=== PATIENT | female | born 1955 | race Caucasian/White ===

== ENCOUNTER 2023-11-08 23:59 | Inpatient (IN) | payer MEDICARE, OTHER, SELFPAY ==
[2023-11-08 21:08] VITALS: BP 131/72
[2023-11-08 21:11] VITALS: BP 131/72
[2023-11-08 21:24] LABS: % Basophils 0.4 % (0-2); % Eosinophils 3.5 % (0-6); % Immature Granulocytes 0.6 % (0-0.5); % Lymphocytes 26.1 % (20.5-51.1); % Monocytes 6.6 % (1.7-9.3); % Neutrophils 62.8 % (42.2-75.2); Absolute Basophils 0.1 10^3/uL (0-0.2); Absolute Eosinophils 0.5 10^3/uL (0-0.7); Absolute Immature Granulocytes 0.1 10^3/uL (0-0.05); Absolute Lymphocytes 3.3 10^3/uL (1.2-3.4); Absolute Monocytes 0.8 10^3/uL (0.1-0.6); Hematocrit 33.6 % (37.0-47.0); Hemoglobin 11.2 g/dL (12.0-16.0); Mean Corp Hgb Conc. 33.3 g/dL (33.0-37.0); Mean Corpuscular Hgb 27.9 pg (27.0-31.0); Mean Corpuscular Volume 83.8 fL (81.0-99.0); Mean Platelet Volume 9.7 fL (7.4-10.4); Nucleated Red Blood Cells % 0 %; Platelet Count 299 10^3/uL (130-400); Red Blood Cell Count 4.01 10^6/uL (4.20-5.40); Red Cell Dist. Width 14.7 % (11.5-14.5); White Blood Cell Count 12.8 10^3/uL (4.8-10.8)
[2023-11-08 21:37] LABS: ALT (SGPT) 22 U/L (0-35); AST (SGOT) 31 U/L (14-36); Albumin 4.2 g/dl (3.5-5.0); Alkaline Phosphatase 59 U/L (38-126); Blood Urea Nitrogen 24 mg/dl (7-17); Calcium 9.9 mg/dl (8.4-10.2); Carbon Dioxide 27 mmol/L (22-30); Chloride 106 mmol/L (98-107); Glucose 122 mg/dl (70-99); Potassium 4.2 mmol/L (3.5-5.1); Sodium 142 mmol/L (135-145); Total Bilirubin 0.3 mg/dl (0.2-1.3); Total Protein 7.5 g/dl (6.3-8.2); eGFR > 60.00
[2023-11-08 22:03] VITALS: BP 139/79
--- NOTE | 2023-11-08 22:05 | ED.MUSCINJ ---
HPI-Injury
General
Chief Complaint: Musculo-Skeletal Complaint
Source: patient
Exam Limitations: none
Time Seen by Provider: 11/08/23 21:45
Nursing documentation reviewed up to this point in time: agreed with
Travel History
Have you had any contact with someone who has COVID-19?: No
Do you have any symptoms of coronavirus? Fever > 100 degrees, chills, cough, shortness of breath, sore throat, loss of taste or smell, muscle aches, or headache?: No
History of Present Illness-Injury
Is this injury a work related problem?: No
Is pt an associate of [facility]?: No
Initial Injury comments:
Missed a step at a restaurant and fell. SHe denies hitting her head. No LOC. COmplains of pain to right left hip. Injury occurred just [employer]. Brought to ED via EMS for eval.
Past History
Past History
ED Past Medical History: HTN, NIDDM, Hypothyroidism and Other (No cancer history)
ED Past Surgical History: Gynecological and Other (thyroidectomy)
Social History
Tobacco: Non-smoker
Alcohol: None
Drug: None
Review of Systems
Review of Systems
Allergies reviewed?: Yes
All Other Systems: ROS reviewed and negative except as documented in HPI and ROS
Constitutional: Reports no symptoms
EENT: Reports no symptoms
Respiratory: Reports no symptoms
Cardiac: Reports no symptoms
ABD/GI: Reports no symptoms
Musculoskeletal: Reports joint pain (Left hip pain)
Skin: Reports no symptoms
Neurological: Reports no symptoms
Psychiatric: Reports no symptoms
Musculoskeletal Injury Exam
Musculoskeletal Injury Exam
Left Hip:
Pain with Movement?: Moderate
Tender to palpation?: Moderate
Soft tissue swelling?: Mild
External deformity and angulation?: None
Joint effusion?: None
Contusion?: Moderate
Hematoma-local bleeding into tissue?: Moderate
Strain- Sprain- Tear (Connective tissue injury)?: Moderate
Crepitus with movement?: No
Joint instability?: No
Malalignment/deformity?: No
Range of motion: Limited
Distal skin color and temperature: normal-warm & good color
Capillary Refill: normal
Normal distal neurovascular exam?: Yes
Peripheral Pulses: posterior tibial (left): 3+ and dorsalis pedis (left): 3+
Phy Exam
General Physical Exam
General Presentation: well appearing and mild distress
General age: appears stated age
General Skin: warm and dry
General Habitus: normal
General Mental: alert
Cardiovascular Exam
Cardiovascular Exam: regular rate/rhythm
Gastrointestinal Exam
Gastrointestinal Exam: non tender, soft and no organomegaly
Musculoskeletal Exam
Musculoskeletal Exam: neuro vasc intact
Skin Exam
Skin Exam: normal color, warm/dry and no rash
Psychiatric Exam
Psychiatric Exam: normal mood/affect
Injury Course
Orders/Labs/Results
Orders:
Orders
11/08/23 21:13
CR Hip - LT w/wo Pel 2-3 Vw* Urgent
Comment:
Reason For Exam: injury
Include a pelvis x-ray?: Yes
11/08/23 21:15
Complete Blood Count/With Diff Urgent
Comprehensive Metabolic Panel Urgent
11/08/23 22:16
Lower Ext Left wo Contrast CT [CT Lower Ext W/o Iv Cont Lt] Urgent
Comment:
Reason For Exam: left hip fracture - requested by ortho
Femur, Left 2 View [CR Femur - Left Min 2 Vw] Urgent
Comment:
Reason For Exam: trauma - requested by ortho
11/08/23 22:17
HYDROmorphone [Dilaudid] 0.5 mg IV NOW STA
Ondansetron Injectable [Zofran] 4 mg IV NOW STA
11/08/23 22:59
Consult Orthopedic [ORTHOPEDIC CONSULT] Urgent
Consulting Provider: Marquis Trujillo
Was physician already notified: Yes
Abnormal Lab Results
11/08/23
21:15
WBC 12.8 H 10^3/uL
(4.8-10.8)
RBC 4.01 L 10^6/uL
(4.20-5.40)
Hgb 11.2 L g/dL
(12.0-16.0)
Hct 33.6 L %
(37.0-47.0)
RDW 14.7 H %
(11.5-14.5)
Abs Immat Gran (auto) 0.1 H 10^3/uL
(0-0.05)
Absolute Neuts (auto) 8.0 H 10^3/uL
(1.4-6.5)
Absolute Monos (auto) 0.8 H 10^3/uL
(0.1-0.6)
Immature Gran % 0.6 H %
(0-0.5)
BUN 24 H mg/dl
(7-17)
Glucose 122 H mg/dl
(70-99)
11/08/23 21:15
11/08/23 21:15
*Radiology
Radiology exam reviewed: radiology read reviewed
*Pulse Oximetry
Patient hypoxic: no
*Critical Care Note
Total Time (30-74mins, 75-104mins- exclusive of procedures): Not Applicable
Update Note
Update Note:
Dr. Trujillo consulted via tiger text. Plan for OR in AM. He is requesting full femur xray and CT of left hip. Orders placed. Patient will be admitted to hospitalist service with Dr. Trujillo consulting
ED Attending Note
-
Portions of this chart may have been created with voice recognition software.� Occasional wrong word or��sound alike� substitutions may have occurred due to the inherent limitations of voice recognition software.
Discharge Plan
Departure
Patient Disposition: Admit
Date of Disposition: 11/08/23
Time of Disposition: 22:25
Presentation/result/management discussed w/ accepting MD/DO: Hospitalist
Patient with high blood pressure during this ER visit?: No
Condition: Fair
Covid-19: Not Applicable
Discharge Problem:
Closed hip fracture
Interventions
Interventions:
*Risk Screen - Suicide Last Done: 11/08/23 21:08
*General Assessment Last Done: 11/08/23 21:08
*Neglect/Abuse Screening Last Done: 11/08/23 21:08
ED- Fall Risk Assessment Last Done: 11/08/23 21:17
*ED COVID-19 Vaccine History Last Done: 11/09/23 02:32
*Nursing Disposition Last Done: 11/09/23 01:29
ED-Musculoskeletal Assessment Last Done: 11/08/23 21:17
Discharge Date and Time
Discharge Date/Time: 11/09/23 01:30
[2023-11-08] MEDS: DILAUDID 0.5 MG IV (22:45)
[2023-11-08] MEDS: ZOFRAN 4 MG IV (22:45)
[2023-11-08 23:00] VITALS: BP 120/68
[2023-11-08 23:13] VITALS: BMI 35.2
[2023-11-09] VITALS (9 sets, daily range): BP systolic 111–164; BP diastolic 65–88; BMI 33.5
[2023-11-09] MEDS: DILAUDID 0.5 MG IV ×4 (00:11→12:49)
--- NOTE | 2023-11-09 00:14 | HPS.HSE ---
Family Physician
-
Family Physician: Makenzie Sheppard
Chief Complaint
-
L Hip pain s/p fall
History of Present Illness
Patient is a 68y F with PMH significant for hypertension, DM-II and obesity who presents to ED complaining of left hip pain after a [id number] this evening. Patient states she was walking down some stairs this evening when she lost her
footing and fell, landing on her L side. She denies striking her head or any LOC. She denies any prodrome of dizziness, lightheadedness, chest pain or dyspnea. Patient noted immediate pain in the L hip and was fairly certain that she had broken
her hip. Patient was brought to ED via EMS and x-rays here confirm L femur fracture.
Medical History
Past Medical History
Past Medical History: Reports Other
Additional Past Medical History:
DM-II
Hypertension
Obesity
Hypothyroidism
Osteoarthritis
Past Surgical History: Reports Other
Additional Past Surgical History:
Thyroidectomy
T&A
Social History
Tobacco: Former Smoker (Quit smoking 40 years ago. Approx 20 pack years total use.)
Alcohol: Occasional
Drug: None
Personal:
Living: With Family
Family History
Family History: Not pertinent
Allergies / Home Medications
Allergies reflects when Allergies were last updated in [employer].
Home Medications with original date entered in [employer]
Allergy/Medication List:
Allergies
Allergy/AdvReac Type Severity Reaction Status Date / Time
aspirin Allergy Unknown Verified 11/08/23 21:08
levofloxacin [From Levaquin] Allergy Unknown Verified 11/08/23 21:08
Home Medications
brimonidine 0.2 % eye drops 1 drp ophthalmic (eye) BID 11/08/23
ergocalciferol (vitamin D2) 1,250 mcg (50,000 unit) capsule 1,250 mcg PO QWEEK 11/08/23
evolocumab 140 mg/mL subcutaneous syringe (Repatha Syringe) 140 mg SC Q2W 11/08/23
insulin aspart U-100 100 unit/mL (3 mL) subcutaneous pen (Novolog FlexPen U-100 Insulin aspart) 5 unit SC TID 11/08/23
insulin degludec 100 unit/mL (3 mL) subcutaneous pen (Tresiba FlexTouch U-100 insulin) 60 unit SC HS 11/08/23
levothyroxine 150 mcg tablet 150 mcg PO DAILY 11/08/23
meloxicam 15 mg tablet 15 mg PO DAILY 11/08/23
metformin 1,000 mg tablet 1,000 mg PO BID 11/08/23
olmesartan 40 mg tablet 40 mg PO DAILY 11/08/23
sodium bicarbonate 325 mg tablet 325 mg PO BID 11/08/23
vit C 250 mg-vit E 90 mg-zinc 40 mg-copper 1 [id number] capsule (PreserVision AREDS-2) 1 tab PO BID 11/08/23
Review of Systems
-
History Source: Patient
A 12 point ROS was completed and negative except as noted: Yes
Constitutional: Denies Fever or Chills
Respiratory: Denies Cough or Trouble Breathing
Cardiac: Denies Chest Pain or Palpitations
Abdomen/GI: Denies Abdominal Pain, Nausea, Vomiting or Diarrhea
: Denies Dysuria, Frequency or Flank Pain
Musculoskeletal: Reports Joint Pain
Neurological: Denies Dizzy or Headache
Psych: Denies Depression or Anxiety
Physical Exam
Vital Signs
Vital Signs
Temp Pulse Resp BP Pulse Ox
99.6 F 86 14 120/68 100
11/08/23 21:08 11/08/23 23:00 11/08/23 23:00 11/08/23 23:00 11/08/23 22:30
Physical Exam
General: Other (68y F in mild distress due to pain.)
HEENT: Moist mucous membranes and PERRLA
Respiratory: Clear; No Wheezes, Rales or Rhonchi
Cardiac: S1/S2 and Regular Rhythm; No Murmur
GI: Soft, Non Tender, Non Distended and Normal Bowel Sounds
Musculoskeletal: No Clubbing, No Cyanosis and Other (LLE shortened and externally rotated. Pain with any ROM.)
Neuro: AO x 3
Psych: No Anxious or Depressed
Laboratory Results
-
11/08/23 21:15
11/08/23 21:15
Laboratory Results
Total Bilirubin 0.3 mg/dl (0.2-1.3) 11/08/23 21:15
AST 31 U/L (14-36) 11/08/23 21:15
ALT 22 U/L (0-35) 11/08/23 21:15
Alkaline Phosphatase 59 U/L (38-126) 11/08/23 21:15
Impression/Plan
-
A/P: Patient is a 68y F with PMH significant for DM-II, hypertension and obesity who presents to ED complaining of L hip pain s/p fall.
Left Hip Fracture
- Admit for further evaluation and treatment.
- Patient with significant L proximal femur fracture s/p described [id number].
- Pain control / bedrest overnight.
- Ortho evaluation for operative repair.
- Patient with no personal history of NC, CVA, etc.
- No prior complications relating to surgery / anesthesia.
- Patient is at increased risk for complications compared to an otherwise healthy individual of her age based on DM, obesity.
- Benefits of planned procedure outweigh potential risks and patient is OK to proceed to OR without additional pre-op evaluation(s).
- Post-op PT, OT, etc.
- Additional imaging of L hip requested due to atypical fracture pattern - ? pathologic component.
[id number]
- No suspicious characteristics of described fall.
- PT / OT post-op as noted above.
DM-II
- Stable. Unusual insulin regimen with patient reported basal insulin dose ranging from 0 to 60 units depending on glucose.
- Will begin with 20 units for now and monitor for hypo or hyperglycemia.
- Adjust basal dose as needed.
- SSI as needed for hyperglycemia.
- Update A1C.
Benign Hypertension
- Stable. Continue outpatient med regimen and adjust as needed for adequate BP control.
Hypothyroidism
- Stable. Continue T4 supplementation.
Obesity due to insulin resistance and excess calories
- Affects all aspects of care.
- Encourage healthy diet and increased activity as able with goal of weight reduction.
DVT Prophylaxis: Foot pumps for now. Post-op as per Ortho.
Code Status: Full
[2023-11-09 05:21] LABS: Glucose - Point of Care 173 mg/dl (70-99)
[2023-11-09 05:52] LABS: Hematocrit 32.5 % (37.0-47.0); Hemoglobin 10.3 g/dL (12.0-16.0); Mean Corp Hgb Conc. 31.7 g/dL (33.0-37.0); Mean Corpuscular Hgb 27.9 pg (27.0-31.0); Mean Corpuscular Volume 88.1 fL (81.0-99.0); Mean Platelet Volume 10.3 fL (7.4-10.4); Platelet Count 263 10^3/uL (130-400); Red Blood Cell Count 3.69 10^6/uL (4.20-5.40); Red Cell Dist. Width 14.6 % (11.5-14.5); White Blood Cell Count 14.3 10^3/uL (4.8-10.8)
[2023-11-09 06:19] LABS: Blood Urea Nitrogen 21 mg/dl (7-17); Calcium 9.6 mg/dl (8.4-10.2); Carbon Dioxide 25 mmol/L (22-30); Chloride 104 mmol/L (98-107); Estimated Creatinine Clearance 82 ml/min; Glucose 169 mg/dl (70-99); Potassium 5.2 mmol/L (3.5-5.1); Sodium 140 mmol/L (135-145); eGFR > 60.00
[2023-11-09] MEDS: NOVOLOG FLEXPEN-LOW RESISTANCE 1 UNITS SC (06:24)
[2023-11-09] MEDS: SYNTHROID PO (06:25)
[2023-11-09] MEDS: ALPHAGAN 0.2% EYE DROPS 1 DROP OPHTH ×2 (08:20→21:00)
[2023-11-09] MEDS: SODIUM BICARBONATE 325 MG PO ×2 (08:21→21:08)
[2023-11-09] MEDS: TYLENOL 1000 MG PO ×2 (08:22→22:03)
[2023-11-09] MEDS: BENICAR 40 MG PO (08:22)
[2023-11-09 08:59] LABS: Glycohemoglobin (HgbA1c) 7.3 % (4.0-5.6)
--- NOTE | 2023-11-09 10:10 | W.PN.HOSP.TC ---
Today's Communication/Plan
-
Await surgery today
Stop olmesartan
Topical steroids
Assessment / Plan
Assessment / Plan
Gen-AAOx3, NAD
HEENT-NC, AT, anicteric, clear oral mm
Neck-supple
CV-reg, no M, +S1/S2
Lungs-clear B/L
Abd-soft, NT, ND
Ext-no edema
Musculoskeletal-no cyanosis, clubbing
Skin-warm and dry, widespread psoriatic lesions
Neuro-grossly non-focal
Psych-calm, cooperative
Acute traumatic left proximal femur fracture -due to fall. N.p.o. for operative repair today. Appears medically stable for surgery.
Diffuse psoriasis -not on active treatment. Can use topical steroids. Recommend outpatient follow-up with dermatology.
Hyperkalemia -5.2. Discontinue ARB. Recheck labs in the morning.
Normocytic anemia -unclear chronicity or etiology. Needs outpatient follow-up. Monitor for now.
DM2 with hyperglycemia -hemoglobin A1c 7.3%. Glucose 169 this morning. At home she is on metformin twice daily, Tresiba scale up to 60 units at bedtime, NovoLog 5 units 3 times daily.
In the hospital she is on Lantus 20 units at bedtime, low resistance NovoLog scale.
Essential hypertension -stable.
Hyperlipidemia -on Repatha subcutaneously every 2 weeks.
Hypothyroidism -continue Synthroid.
Obesity due to excess calories
Full code
PT/OT postop
Anticipated Discharge: 24 - 48 hours
Subjective/Interval History
-
Date of Service: November 09, 2023
Patient seen and examined. No complaints.
Objective Data
-
Labs:
Laboratory Results
11/09/23
04:41
WBC 14.3 H
Hgb 10.3 L
Hct 32.5 L
Plt Count 263
Sodium 140
Potassium 5.2 H
Chloride 104
Carbon Dioxide 25
BUN 21 H
Creatinine 0.8
Glucose 169 H
Calcium 9.6
Vital Signs:
Vital Signs
Temp Pulse Resp BP Pulse Ox
98.7 F 82 17 136/88 99
11/09/23 07:05 11/09/23 07:05 11/09/23 07:05 11/09/23 07:05 11/09/23 08:00
Review of Systems
-
History Source: Patient
All other systems: Reviewed and negative
--- NOTE | 2023-11-09 10:40 | CM ---
CM met with pt bedside
Pt resides with her spouse in a 2SH with ramp entrance and elevator throughout
Pt notes independence with ADLs and denies use of DMEs
PCP- annelise Sheppard
Rx- [facility]
Pt admitted with l. hip fx and planned for surgery
Will need post-op PT/OT evals
Explained anticipated post op rehab needs
PAC list provided
Spouse is the chief of [employer] [facility] [employer] and is well versed with local rehabs
They do not want inpatient rehab on dc- want to go home
Explained VN and possible need for DME rentals on dc
CM will continue to follow for dc planning
Discharge Disposition- anticipate SNF recommendations, pt is hopeful for home with VN and DMEs
--- NOTE | 2023-11-09 10:59 | CON.ORTHO ---
Addendum entered and electronically signed by Marquis Trujillo MD 11/09/23 11:26:
I agree with the above note and evaluated the patient at bedside. 68-year-old female sustained a trip and fall landing on the left side. She had severe pain and inability to weight-bear. She was brought to the emergency department where she was
shown to have a comminuted subtrochanteric left femur fracture. She has a history of psoriasis which affects her skin including the lateral thigh on the left. She has not been treating this. She is not on Biologics. She denies numbness in the
left foot. We discussed treatment options in light of her injury and the skin changes on her lateral thigh. She has psoriatic plaques throughout the anterior lateral thigh without signs of infection. We discussed the morbidity associated with
nonoperatively treated hip fractures and discussed the risk and benefits of surgical treatment. Shared decision was to proceed with left hip fracture ORIF is of a modular nail. We discussed that she may have a slightly higher risk of infection
given the skin changes. We discussed that treating the psoriatic plaques until the resolved could take weeks and the associated morbidity with this delay may outweigh the risk of proceeding with surgery acutely. She was to proceed with surgery.
We discussed extended oral antibiotics as prophylaxis. All questions were answered.
Original Note:
Consultation
-
Date/Time Consultation Requested: 11/08/2023 @ 22:59
Date/Time Consultation Performed: 11/09/2023 @ 6:40 AM
Requesting Provider: Damari Garber NP
Performing Provider: Raz Iverson PA-C for Dr. Trujillo
Reason for Consultation: Left Hip Fracture
Consultation - Orthopedics
History
Orthopedic Surgery Note
CC: Left Hip Pain s/p Mechanical Fall
HPI: The patient is a 68-year-old female with a past medical history significant for Hypertension, Type II Diabetes on Metformin (reported last HbA1c 7.2), hypothyroidism, osteoarthritis, and obesity who presented to [facility] Emergency
Department on 11/08/2023 with complaints of left hip pain after sustaining a mechanical fall last night. Patient states that she was walking down the stairs at the [facility] when she lost her footing and fell, landing on her left hip. She
denies any head trauma or loss of consciousness. Patient noted immediate pain in the left hip and at that time was fairly certain that she fractured her left hip. She was transported to [facility] via EMS where x-rays confirmed a left
proximal femur fracture. At baseline, patient reports that she is fully ambulatory at baseline. She denies any previous orthopedic surgeries. She denies any blood thinner use. Orthopedic surgery was consulted regarding management of this patient.
PMH/PSH: DM-II, HTN, Obesity, Hypothyroidism, Osteoarthritis. Thyroidectomy, T&A.
Medications: Reviewed.
Family History: Family history was reviewed. Noncontributory
Social history: Former smoker (quit smoking 40 years ago. Approximate 20 pack years total use). Reports occasional alcohol use. Denies any illicit drug use. Patient is and lives with her family. Patient is fully ambulatory at baseline
without assistance.
Exam
General appearance: Pleasant. No acute distress.
Head: Normocephalic/atraumatic
Nose: No lesions or discharge.
Skin: No obvious rashes or open wounds
Lungs: No audible wheezing, no cough or sputum production
Musculoskeletal:
LLE:
Focused examination of the left lower extremity reveals leg is shortened and externally rotated. Skin intact without open wounds. Psoriatic changes overlying the left proximal thigh and lateral hip region. Positive logroll. Positive tenderness to
palpation over the left hip. No significant tenderness to palpation over the left knee. Range of motion of hip deferred secondary to known fracture. She is able to demonstrate active dorsiflexion and plantarflexion of the left ankle. She is able to
wiggle all toes. Sensation intact to light touch. NVI distally.
Imaging:
CR Hip - LEFT w/wo Pel 2-3 Vw*, CR Femur - LEFT Min 2 Vw*, and Lower Extremity CT scan w/o Contrast was obtained at [facility] on 11/08/2023 and was made available for my review today. I note a left comminuted and angulated subtrochanteric
proximal femur fracture. There is underlying left hip osteoarthritis noted.
Assessment and Plan: 68-year-old female with left comminuted subtrochanteric proximal femur fracture s/p mechanical fall. We discussed the treatment options. Recommend operative fixation. The risk, benefits, potential complications, and expected
postoperative course were reviewed. Patient agrees to proceed with surgical intervention. Surgical and blood consents were obtained and placed into the patient's chart. We will plan for OR today for left proximal femur ORIF with cephalomedullary
nail under the direction of Dr. Trujillo. Patient has been medically cleared to proceed to OR. She will remain NPO. She is to remain nonweightbearing to the left leg until postop. Continue with pain management as needed. Preop Ancef and irrigation
on-call to the OR. Type and screen pending. Left hip marked as the correct surgical extremity. Orthopedic surgery will continue to follow along.
Allergies / Home Medications
Allergy/AdvReac Type Severity Reaction Status Date / Time
aspirin Allergy Unknown Verified 11/08/23 21:08
levofloxacin [From Levaquin] Allergy Unknown Verified 11/08/23 21:08
�Medication �Instructions �Recorded
brimonidine 0.2 % eye drops 1 drp ophthalmic (eye) BID Eye 11/08/23
Condition
ergocalciferol (vitamin D2) 1,250 1,250 mcg PO QWEEK Supplement 11/08/23
mcg (50,000 unit) capsule
evolocumab 140 mg/mL subcutaneous 140 mg SC Q2W High Cholesterol 11/08/23
syringe (Repatha Syringe)
insulin aspart U-100 100 unit/mL 5 unit SC TID Diabetes 11/08/23
(3 mL) subcutaneous pen (Novolog
FlexPen U-100 Insulin aspart)
insulin degludec 100 unit/mL (3 60 unit SC HS Diabetes 11/08/23
mL) subcutaneous pen (Tresiba
FlexTouch U-100 insulin)
levothyroxine 150 mcg tablet 150 mcg PO DAILY Thyroid 11/08/23
meloxicam 15 mg tablet 15 mg PO DAILY Pain 11/08/23
metformin 1,000 mg tablet 1,000 mg PO BID Diabetes 11/08/23
olmesartan 40 mg tablet 40 mg PO DAILY Blood Pressure 11/08/23
sodium bicarbonate 325 mg tablet 325 mg PO BID Electrolyte Repletion 11/08/23
vit C 250 mg-vit E 90 mg-zinc 40 1 tab PO BID Supplement 11/08/23
mg-copper 1 [id number]
capsule (PreserVision AREDS-2)
Vital Signs / Lab Results
Temp Pulse Resp BP Pulse Ox
98.7 F 82 17 136/88 99
11/09/23 07:05 11/09/23 07:05 11/09/23 07:05 11/09/23 07:05 11/09/23 08:00
11/09/23 04:41
11/09/23 04:41
[2023-11-09] MEDS: DIPROSONE CREAM 0.05% TOPICAL (12:00)
[2023-11-09 12:38] LABS: Glucose - Point of Care 138 mg/dl (70-99)
[2023-11-09] MEDS: NOVOLOG FLEXPEN-LOW RESISTANCE SC ×2 (12:39→18:56)
[2023-11-09] MEDS: TYLENOL PO (17:10)
--- NOTE | 2023-11-09 17:55 | OR.RPT ---
Operative Report
Operative Report
Orthopaedic Surgery Operative Note
DATE OF OPERATION: 11/09/2023
PREOPERATIVE DIAGNOSIS: Subtrochanteric Hip Fracture, Left
POSTOPERATIVE DIAGNOSIS: Same
OPERATION PERFORMED: Left subtrochanteric hip fracture open reduction and internal fixation with cephalomedullary nail
SURGEON: Marquis Trujillo MD
DEALER RELATIONSHIP MANAGER: NA
ANESTHESIA: General
COMPLICATIONS: None.
ESTIMATED BLOOD LOSS: 250 mL.
DRAINS: None
SPECIMEN: None
IMPLANTS:
Sheila Gamma Cephalomeduallary nail; 420 mm by 10 mm
[place] lag screw, 95 mm.
5.0mm distal interlocking screw x2
INDICATIONS FOR PROCEDURE
68F with history of psoriasis presented to the ED after sustaining a fall. Xrays showed comminuted proximal femur fracture. I discussed treatment options with the patient and family including nonoperative and operative treatments. We reviewed the
natural history of the problem, as well as the risks, benefits, and alternatives of various treatment options. Shared decision was to proceed with surgical treatment. We discussed that she had psoriatic involvement of the skin over the lateral thigh
and buttock region which may compromise her wound healing and increase risk of infection. Given the morbidity of delaying surgery for treatment of this over the course of a week or two, shared decision was to proceed with surgery in light of some
elevated risk of wound complications. The patient and family understood the risks including, but were not limited to, bleeding, infection, failure to relieve pain, more pain than preop, damage to blood vessels and nerves, need for reoperation,
mechanical failure of the implants, wound healing problems, stiffness, instability, blood clot, pulmonary embolism, myocardial infarction, pneumonia, arrhythmia, CVA, and . All questions were answered, and informed consent was obtained.
PROCEDURE IN DETAIL: The patient was identified in the preoperative holding area. The operative limb was identified as the operative site and marked with my initials. The patient was transferred to the operating room. General anesthesia was
performed. [facility] IV antibiotics and tranexamic acid were given. All bony prominences were well padded. The operative limb was prepped and draped in the usual sterile fashion.
We performed a surgical time-out. A 1.6mm (0.65��) nikita wire was placed in the distal femur, and traction bow was applied. This was well padded over the knee. 15lbs of skeletal traction was applied. The guide wire was placed over the medial
aspect of the tip of the greater trochanter. The guide wire was advanced and checked for appropriate position on AP and lateral. The pin guide wire was advanced to the level of the lesser trochanter. Incision was made about the wire. Care was made
to make incision to avoid areas of most pronounced psoriatic involvement. The opening reamer was used to open the starting point over the guide wire. The fracture was reduced with the aid of flouroscopy. A small lateral incision was made, and a bone
hook and alcaraz were used to aid reduction. A ball-tipped guide wire was advanced to the distal femur. Length was measured to be 425mm. The femoral canal was sequentially reamed with the fracture reduced starting with a 9.5mm reamer up to 11.5mm. The
nail was then inserted over the guidewire down to the appropriate depth. The guide wire was removed. The targeting guide was assembled, and a lateral incision was made for lag screw placement. A guide pin was advanced into the femoral head. Position
was checked on AP and lateral. The length was measured to be 100mm. The drill was set to the appropriate depth, and the lag screw path was drilled over the guide wire. The lag screw was then inserted into the femoral head just distal to the
subchondral bone. Compression was applied. The locking screw was then placed into the top of the nail. Skeletal traction was removed, and two distal interlocking screws were placed with perfect chemehuevi technique. Final fluoroscopy shots were
performed which showed appropriate position and length of the implant and anatomic reduction of the fracture.
The incisions were copiously irrigated with 3L normal saline. The deep fascial layers were closed with 0 PDS. The dermal layer closed with 2-0 PDS running. The skin was closed with 3-0 nylon. Sterile dressings were applied. The patient was awoken
from anesthesia without complication.
The patient awoke from anesthesia without difficulty. Sponge and instrument counts were correct x2 at the end of the case. I was present and participated in the entire procedure. The patient was sent to the recovery room in stable condition.
Post operative plan:
TTWB LLE; WBAT LLE for transfers and ADL's only
PT/OT
Pain control
ABX: Ancef x24 hours and 7 days PO keflex
DVT: ASA 325 daily if tolerated; or lovenox 30mg BID subcutaneous 4 weeks
Earl Trujillo MD
[2023-11-09 17:57] LABS: Glucose - Point of Care 186 mg/dl (70-99)
--- NOTE | 2023-11-09 18:01 | SUR.PHASEI ---
Re'd agiated, pulling all equipment off, hitting, oriented x 3 by RN, reassured, combative
--- NOTE | 2023-11-09 18:05 | SUR.PHASEI ---
Sl less agitated, reassured, refusing O2 n/c clothes, psoriasis rash all over body, HOB elevated low fowlers
--- NOTE | 2023-11-09 18:20 | SUR.PHASEI ---
Periods of calm, more cooperative
[2023-11-09] MEDS: NOVOLOG vial 1 UNITS SC (18:31)
--- NOTE | 2023-11-09 18:35 | SUR.PHASEI ---
kavita Suarez, ice maint to Yesi king
[2023-11-09] MEDS: NSS 1000 IV (18:36)
--- NOTE | 2023-11-09 18:49 | PTCARENOTE ---
Pt returned to [facility] s/p L hip ORIF w/ gamma nail. Pt L hip aquacel C/D/I, and L knee dressing C/D/I, NV intact. Pt on 2L NC satting 94%, IVF infusing. Pt drowsy but arousable to verbal stimuli. Pt at bedside. Pt has no complaints at this
time.
--- NOTE | 2023-11-09 18:59 | SUR.PHASEI ---
More alert, apologizing for behavior, reassured, vss, stable for d/c
[2023-11-09] MEDS: COLACE 100 MG PO (21:07)
[2023-11-09] MEDS: DIPROSONE CREAM 0.05% 1 APPLIC TOPICAL (21:08)
[2023-11-09 22:00] LABS: Glucose - Point of Care 219 mg/dl (70-99)
[2023-11-09] MEDS: ANCEF 5 IV (22:03)
[2023-11-09] MEDS: LANTUS 0.200000000000000011 UNITS SC (22:04)
--- NOTE | 2023-11-10 01:03 | PTCARENOTE ---
Educated pt on need to try to use commode post op even if TTWB, pt ordered WBAT for transfers. Pt verbalized concern about ambulation since pain is a big issue. RN explained that pt can be medicated for pain w PRN pain medication but pt refused to
use commode and stated she rather wait for PT/OT to work with her. Pt insisted on use of bedpan for toileting despite education. Assessment ongoing.
[2023-11-10 03:12] VITALS: BP 119/58
[2023-11-10] MEDS: SYNTHROID 150 MCG PO (05:19)
[2023-11-10] MEDS: ANCEF 5 IV (05:19)
[2023-11-10] MEDS: NSS 1000 IV ×2 (06:04→17:39)
[2023-11-10 07:00] VITALS: BP 143/91
[2023-11-10 07:22] LABS: % Basophils 0.3 % (0-2); % Eosinophils 0.2 % (0-6); % Immature Granulocytes 0.5 % (0-0.5); % Lymphocytes 16.7 % (20.5-51.1); % Monocytes 8.5 % (1.7-9.3); % Neutrophils 73.8 % (42.2-75.2); Absolute Immature Granulocytes 0.1 10^3/uL (0-0.05); Absolute Lymphocytes 1.7 10^3/uL (1.2-3.4); Absolute Monocytes 0.9 10^3/uL (0.1-0.6); Absolute Neutrophils 7.7 10^3/uL (1.4-6.5); Hematocrit 27.4 % (37.0-47.0); Hemoglobin 8.6 g/dL (12.0-16.0); Mean Corp Hgb Conc. 31.4 g/dL (33.0-37.0); Mean Corpuscular Hgb 27.8 pg (27.0-31.0); Mean Corpuscular Volume 88.7 fL (81.0-99.0); Mean Platelet Volume 10.4 fL (7.4-10.4); Nucleated Red Blood Cells % 0 %; Platelet Count 227 10^3/uL (130-400); Red Blood Cell Count 3.09 10^6/uL (4.20-5.40); White Blood Cell Count 10.4 10^3/uL (4.8-10.8)
[2023-11-10 07:46] LABS: Glucose - Point of Care 162 mg/dl (70-99)
[2023-11-10 07:57] LABS: Blood Urea Nitrogen 20 mg/dl (7-17); Calcium 8.5 mg/dl (8.4-10.2); Carbon Dioxide 23 mmol/L (22-30); Chloride 103 mmol/L (98-107); Estimated Creatinine Clearance 82 ml/min; Glucose 146 mg/dl (70-99); Potassium 4.8 mmol/L (3.5-5.1); Sodium 138 mmol/L (135-145); eGFR > 60.00
[2023-11-10] MEDS: ROXICODONE 10 MG PO (08:24)
[2023-11-10] MEDS: TYLENOL 1000 MG PO ×3 (08:24→21:23)
[2023-11-10] MEDS: COLACE 100 MG PO (08:24)
[2023-11-10] MEDS: LOVENOX 30 MG SC ×2 (08:25→21:05)
[2023-11-10] MEDS: ALPHAGAN 0.2% EYE DROPS 1 DROP OPHTH ×2 (08:25→21:04)
[2023-11-10] MEDS: DIPROSONE CREAM 0.05% 1 APPLIC TOPICAL ×2 (08:26→21:15)
[2023-11-10] MEDS: NOVOLOG FLEXPEN-LOW RESISTANCE 1 UNITS SC ×2 (08:26→12:29)
[2023-11-10] MEDS: SODIUM BICARBONATE 325 MG PO ×2 (08:27→21:06)
--- NOTE | 2023-11-10 08:40 | W.PN.ORTHO ---
Today's Communication / Plan
-
68 yo F POD1 left cephalomedullary nail under the direction of Dr. Trujillo
--TDWB to LLE. May be WBAT for transfers and ADLs. We appreciate the assistance of PT/OT.
--Recommend ASA 325 daily if tolerated; otherwise lovenox 30mg BID subcutaneous 4 weeks for DVT ppx.
--Ancef x24 hours then 7 days PO keflex.
--Pain control per primary. Ice and elevation for pain and edema control.
--Hgb 8.6 this AM. Continue to monitor.
--Maintain surgical dressing until 2 weeks post-op.
--case management consult for dc planning.
Assessment
.
Distal Motor Intact: Yes
Dressing:
Clean, dry and intact.
Plan
.
Surgery / Date: Left gamma nail, Cassandra, 11/08
DVT Prophylaxis: Lovenox
Activity:
Out of bed.
PT/OT
Subjective
.
.:
Ms. Valdez is a 68 year old female POD1 following her left CMN performed by Dr. Trujillo. She is resting comfortably in bed this morning, and reports her pain has been well controlled with Tylenol.
Vital Signs and Labs
.
Vital Signs and Labs:
Lab Results
11/10/23 06:12
11/10/23 06:12
Temp Pulse Resp BP Pulse Ox
99.0 F 93 17 143/91 96
11/10/23 07:00 11/10/23 07:00 11/10/23 07:00 11/10/23 07:00 11/10/23 07:00
Physical Exam
-
Directed exam of the left lower extremity reveals surgical dressing clean, dry and intact. Underlying psoriatic skin changes over the lateral hip. Mild tenderness to palpation about the anterior and lateral hip. Thigh soft and compressible. Calf
soft and nontender. Patient able to wiggle toes, plantar and dorsiflex ankle. Neurovascularly intact distally.
--- NOTE | 2023-11-10 09:11 | W.PN.HOSP.TC ---
Today's Communication/Plan
-
PT/OT to see
Discharge planning
Continue DVT prophylaxis
Assessment / Plan
Assessment / Plan
Physical Exam
Gen-AAOx3, NAD
HEENT-NC, AT, anicteric, clear oral mm
Neck-supple
CV-reg, no M, +S1/S2
Lungs-clear B/L
Abd-soft, NT, ND
Ext-no edema
Musculoskeletal-no cyanosis, clubbing
Skin-warm and dry, widespread psoriatic lesions. LT hip surgical dressing C/D/I.
Neuro-grossly non-focal
Psych-calm, cooperative
[address] -68-year-old female here with left proximal femur fracture after a fall. OR today. Also has diffuse untreated psoriasis. DM2, hypertension, etc.
Assessment/Plan
Acute traumatic left proximal femur fracture status post left cephalomedullary nail
- due to fall
- TDWB to LLE. May be WBAT for transfers and ADLs. We appreciate the assistance of PT/OT.
--Continue Lovenox for DVT prophylaxis. (Options are ASA 325 daily and Lovenox 30mg BID subcutaneous 4 weeks for DVT ppx)
--Ancef x24 hours then 7 days PO keflex 500 mg BID (first dose was given on 11/10/23)
--Pain control per primary. Ice and elevation for pain and edema control.
--Hgb 8.6 this AM. Continue to monitor.
--Maintain surgical dressing until 2 weeks post-op (until 11/23/23)
--case management consult for dc planning.
-PT/OT
Constipation
- Bowel regimen
Diffuse psoriasis -not on active treatment. Can use topical steroids. Recommend outpatient follow-up with dermatology.
Hyperkalemia -5.2. ARB was discontinued. Recheck labs in the morning.
Normocytic anemia -unclear chronicity or etiology. Needs outpatient follow-up. Monitor for now.
DM2 with hyperglycemia -hemoglobin A1c 7.3%. At home she is on metformin twice daily, Tresiba scale up to 60 units at bedtime, NovoLog 5 units 3 times daily.
In the hospital she is on Lantus 20 units at bedtime, low resistance NovoLog scale.
Essential hypertension -stable.
Hyperlipidemia -on Repatha subcutaneously every 2 weeks.
Hypothyroidism -continue Synthroid.
Obesity due to excess calories
Full code
PT/OT postop
Anticipated Discharge: 24 - 48 hours
Subjective/Interval History
-
Date of Service: November 10, 2023
Patient was seen and examined. She reported some constipation and some discomfort from the surgery.
Objective Data
-
Labs:
Laboratory Results
11/10/23
06:12
WBC 10.4
Hgb 8.6 L
Hct 27.4 L
Plt Count 227
Sodium 138
Potassium 4.8
Chloride 103
Carbon Dioxide 23
BUN 20 H
Creatinine 0.8
Glucose 146 H
Calcium 8.5
Vital Signs:
Vital Signs
Temp Pulse Resp BP Pulse Ox
99.0 F 93 17 143/91 96
11/10/23 07:00 11/10/23 07:00 11/10/23 07:00 11/10/23 07:00 11/10/23 07:00
I&O
11/09/23 11/10/23 11/11/23
06:59 06:59 06:59
Intake Total 2030 / 2029
Output Total 225 / 225
Balance 1805 / 1805
[2023-11-10 11:05] VITALS: BP 137/76; PULSE 90; O2SAT 95
[2023-11-10 11:06] VITALS: BP 137/96; PULSE 92; O2SAT 96
[2023-11-10 12:14] LABS: Glucose - Point of Care 180 mg/dl (70-99)
[2023-11-10] MEDS: KEFLEX 500 MG PO ×2 (12:29→21:05)
[2023-11-10] MEDS: MIRALAX 17 GRAMS PO (12:39)
[2023-11-10] MEDS: MIRALAX PO (14:18)
[2023-11-10 15:10] VITALS: BP 137/70
--- NOTE | 2023-11-10 16:13 | CM ---
Met and spoke with patient and . STR preferences received and referrals have been sent.
[2023-11-10 17:15] LABS: Glucose - Point of Care 206 mg/dl (70-99)
[2023-11-10] MEDS: NOVOLOG FLEXPEN-LOW RESISTANCE 2 UNITS SC (17:35)
[2023-11-10] MEDS: OCUVITE SOFTGEL 1 CAP PO (21:05)
[2023-11-10 22:08] LABS: Glucose - Point of Care 220 mg/dl (70-99)
[2023-11-10] MEDS: LANTUS 0.200000000000000011 UNITS SC (22:14)
[2023-11-10 23:08] VITALS: BP 136/70
[2023-11-11] MEDS: ROXICODONE 10 MG PO ×2 (02:52→09:11)
[2023-11-11] MEDS: NSS 1000 IV ×2 (04:47→19:55)
[2023-11-11] MEDS: SYNTHROID 150 MCG PO (04:51)
[2023-11-11 07:15] VITALS: BP 127/87
--- NOTE | 2023-11-11 07:39 | W.PN.ORTHO ---
Today's Communication / Plan
-
68 yo F POD2 left cephalomedullary nail under the direction of Dr. Trujillo
--TDWB to LLE. May be WBAT for transfers and ADLs. We appreciate the assistance of PT/OT. Ambulate with assistive device
--Recommend ASA 325 daily if tolerated; otherwise lovenox 30mg BID subcutaneous 4 weeks for DVT ppx.
--Ancef x24 hours then 7 days PO keflex.
--Pain control per primary. Ice and elevation for pain and edema control.
--Hgb pending this AM. Continue to monitor.
--Maintain surgical dressing until 2 weeks post-op.
--case management consult for dc planning.
Assessment
.
Distal Motor Intact: Yes
Dressing:
Clean, dry and intact.
Plan
.
Surgery / Date: Left gamma nail, Cassandra, 11/08
DVT Prophylaxis: Lovenox
Activity:
Out of bed.
PT/OT
Subjective
.
.:
Patient resting comfortably in bed this morning. She reports pain in the leg overnight and she had a hard time getting comfortable to sleep. She is feeling a little better this morning
Vital Signs and Labs
.
Vital Signs and Labs:
Temp Pulse Resp BP Pulse Ox
99.2 F 94 18 136/70 95
11/11/23 03:00 11/10/23 23:08 11/10/23 23:08 11/10/23 23:08 11/10/23 23:08
Physical Exam
-
Directed exam of the left lower extremity reveals surgical dressing clean, dry and intact. Underlying psoriatic skin changes over the lateral hip. Mild tenderness to palpation about the anterior and lateral hip. Thigh soft and compressible. Calf
soft and nontender. Patient able to wiggle toes, plantar and dorsiflex ankle. Neurovascularly intact distally.
[2023-11-11 08:23] LABS: Hematocrit 23.2 % (37.0-47.0); Hemoglobin 7.4 g/dL (12.0-16.0); Mean Corp Hgb Conc. 31.9 g/dL (33.0-37.0); Mean Corpuscular Volume 87.9 fL (81.0-99.0); Platelet Count 210 10^3/uL (130-400); Red Blood Cell Count 2.64 10^6/uL (4.20-5.40); Red Cell Dist. Width 15.1 % (11.5-14.5)
[2023-11-11 08:25] LABS: Glucose - Point of Care 154 mg/dl (70-99)
[2023-11-11 09:09] LABS: ALT (SGPT) 13 U/L (0-35); AST (SGOT) 28 U/L (14-36); Albumin 3.2 g/dl (3.5-5.0); Alkaline Phosphatase 54 U/L (38-126); Blood Urea Nitrogen 14 mg/dl (7-17); Calcium 8.6 mg/dl (8.4-10.2); Carbon Dioxide 26 mmol/L (22-30); Chloride 105 mmol/L (98-107); Estimated Creatinine Clearance 94 ml/min; Glucose 148 mg/dl (70-99); Magnesium 2.1 mg/dl (1.6-2.3); Potassium 4.3 mmol/L (3.5-5.1); Sodium 138 mmol/L (135-145); Total Bilirubin 0.4 mg/dl (0.2-1.3); eGFR > 60.00
[2023-11-11] MEDS: SODIUM BICARBONATE 325 MG PO ×2 (09:11→20:05)
[2023-11-11] MEDS: OCUVITE SOFTGEL 1 CAP PO ×2 (09:11→20:04)
[2023-11-11] MEDS: KEFLEX 500 MG PO ×2 (09:12→20:04)
[2023-11-11] MEDS: MIRALAX 17 GRAMS PO (09:12)
[2023-11-11 09:13] VITALS: BP 150/83; BP 162/77; PULSE 91; O2SAT 97
[2023-11-11] MEDS: TYLENOL 1000 MG PO ×3 (09:13→21:58)
[2023-11-11] MEDS: DULCOLAX 5 MG PO (09:13)
[2023-11-11] MEDS: LOVENOX 30 MG SC ×2 (09:14→20:04)
[2023-11-11] MEDS: DIPROSONE CREAM 0.05% 1 APPLIC TOPICAL ×2 (09:15→19:56)
[2023-11-11] MEDS: ALPHAGAN 0.2% EYE DROPS 1 DROP OPHTH ×2 (09:16→19:56)
[2023-11-11] MEDS: NOVOLOG FLEXPEN-LOW RESISTANCE 1 UNITS SC ×2 (09:16→17:24)
[2023-11-11 09:23] LABS: Total Iron Binding Capacity 253 ug/dl (265-497)
[2023-11-11] MEDS: MILK OF MAGNESIA 30 ML PO (09:28)
[2023-11-11] MEDS: DRISDOL (VITAMIN D2) 50000 UNITS PO (09:28)
[2023-11-11 09:30] LABS: Ferritin 45.2 ng/ml (11.1-264.0)
[2023-11-11 09:34] LABS: Iron < 20 ug/dl (37-170)
[2023-11-11 11:30] LABS: Glucose - Point of Care 246 mg/dl (70-99)
[2023-11-11] MEDS: NOVOLOG FLEXPEN-LOW RESISTANCE 2 UNITS SC (12:11)
[2023-11-11 12:20] VITALS: BP 137/68; PULSE 94; O2SAT 97
--- NOTE | 2023-11-11 13:45 | W.PN.HOSP.TC ---
Today's Communication/Plan
-
IV iron
Monitor CBC
Suppository added for constipation
Assessment / Plan
Assessment / Plan
Physical Exam
Gen-AAOx3, NAD
HEENT-NC, AT, anicteric, clear oral mm
Neck-supple
CV-reg, no M, +S1/S2
Lungs-clear B/L
Abd-soft, NT, ND
Ext-no edema
Musculoskeletal-no cyanosis, clubbing
Skin-warm and dry, widespread psoriatic lesions. LT hip surgical dressing C/D/I.
Neuro-grossly non-focal
Psych-calm, cooperative
[address] -68-year-old female here with left proximal femur fracture after a fall. OR today. Also has diffuse untreated psoriasis. DM2, hypertension, etc.
Assessment/Plan
Acute traumatic left proximal femur fracture status post left cephalomedullary nail
- due to fall
- TDWB to LLE. May be WBAT for transfers and ADLs.
- PT/OT.
--Continue Lovenox for DVT prophylaxis. (Options are ASA 325 daily and Lovenox 30mg BID subcutaneous 4 weeks for DVT ppx)
--Ancef x24 hours then 7 days PO keflex 500 mg BID (first dose was given on 11/10/23)
--Pain control per primary. Ice and elevation for pain and edema control.
--Hgb 8.6 this AM. Continue to monitor.
--Maintain surgical dressing until 2 weeks post-op (until 11/23/23)
--case management consult for dc planning.
-PT/OT
Constipation
- Still not having bowel movements
- Bowel regimen
- Suppository added
Diffuse psoriasis - not on active treatment. Can use topical steroids. Recommend outpatient follow-up with dermatology.
Hyperkalemia -5.2. ARB was discontinued. Recheck labs in the morning.
Normocytic anemia -- worsening, suspected component of iron deficiency playing a role. Will order IV iron.
DM2 with hyperglycemia -hemoglobin A1c 7.3%. At home she is on metformin twice daily, Tresiba scale up to 60 units at bedtime, NovoLog 5 units 3 times daily.
In the hospital she is on Lantus 20 units at bedtime, NovoLog 5 units 3 times daily (resumed on 11/11/23) and low resistance NovoLog scale.
Essential hypertension -stable.
Hyperlipidemia -on Repatha subcutaneously every 2 weeks.
Hypothyroidism -continue Synthroid.
Obesity due to excess calories
Full code
PT/OT postop
Anticipated Discharge: 24 - 48 hours
Subjective/Interval History
-
Date of Service: November 11, 2023
Patient was seen and examined. She reported that she was still not having a bowel movement yet.
Objective Data
-
Labs:
Laboratory Results
11/11/23
07:43
WBC 9.0
Hgb 7.4 L
Hct 23.2 L
Plt Count 210
Sodium 138
Potassium 4.3
Chloride 105
Carbon Dioxide 26
BUN 14
Creatinine 0.7
Glucose 148 H
Calcium 8.6
Total Bilirubin 0.4
AST 28
ALT 13
Alkaline Phosphatase 54
Vital Signs:
Vital Signs
Temp Pulse Resp BP Pulse Ox
99.9 F 91 18 127/87 96
11/11/23 07:15 11/11/23 07:15 11/11/23 07:15 11/11/23 07:15 11/11/23 07:15
I&O
11/10/23 11/11/23 11/12/23
06:59 06:59 06:59
Intake Total 2029 / 2029 2400 / 2400 2099 / 2099
Output Total 225 / 225
Balance 1805 / 1805 2400 / 2400 2099 / 2099
[2023-11-11] MEDS: DULCOLAX 10 MG RECTAL (14:08)
[2023-11-11] MEDS: FERRLECIT 110 MG IV (14:08)
--- NOTE | 2023-11-11 14:26 | CM ---
[facility] pending bed availability. Not medically cleared for discharge.
IV iron and monitoring CBC. Discharge Plan of Care: STR when stable.
[2023-11-11 15:05] VITALS: BP 154/80
[2023-11-11 16:10] LABS: Glucose - Point of Care 197 mg/dl (70-99)
[2023-11-11] MEDS: NOVOLOG FLEXPEN 5 UNITS SC (17:24)
[2023-11-11 20:01] VITALS: BP 156/81
[2023-11-11 21:22] LABS: Glucose - Point of Care 208 mg/dl (70-99)
[2023-11-11] MEDS: LANTUS 0.200000000000000011 UNITS SC (21:59)
[2023-11-11 23:24] VITALS: BP 165/78
[2023-11-11 23:41] LABS: Glucose - Point of Care 194 mg/dl (70-99)
[2023-11-12] MEDS: ROXICODONE 5 MG PO (01:30)
[2023-11-12 03:39] VITALS: BP 132/77
--- NOTE | 2023-11-12 03:45 | DOWNTIME ---
There was a [email or web address] Team Leader Downtime on 11/12/2023 from 0100 to 11/12/2023 at 0337. Downtime documentation of patient's care, including medication administrations, has been reconciled in the electronic record per guidelines. Refer to the
patient's paper chart under the miscellaneous tab to see printed paper medication records and downtime forms.
[2023-11-12] MEDS: SYNTHROID 150 MCG PO (06:29)
[2023-11-12 07:07] LABS: Glucose - Point of Care 161 mg/dl (70-99)
[2023-11-12 07:32] VITALS: BP 152/74
[2023-11-12 08:13] LABS: % Basophils 0.4 % (0-2); % Eosinophils 3.5 % (0-6); % Immature Granulocytes 0.8 % (0-0.5); % Lymphocytes 22.7 % (20.5-51.1); % Monocytes 9.3 % (1.7-9.3); % Neutrophils 63.3 % (42.2-75.2); Absolute Eosinophils 0.3 10^3/uL (0-0.7); Absolute Immature Granulocytes 0.1 10^3/uL (0-0.05); Absolute Lymphocytes 1.7 10^3/uL (1.2-3.4); Absolute Monocytes 0.7 10^3/uL (0.1-0.6); Absolute Neutrophils 4.8 10^3/uL (1.4-6.5); Hematocrit 23.6 % (37.0-47.0); Hemoglobin 7.4 g/dL (12.0-16.0); Mean Corp Hgb Conc. 31.4 g/dL (33.0-37.0); Mean Corpuscular Hgb 27.7 pg (27.0-31.0); Mean Corpuscular Volume 88.4 fL (81.0-99.0); Mean Platelet Volume 10.3 fL (7.4-10.4); Nucleated Red Blood Cells % 0 %; Platelet Count 232 10^3/uL (130-400); Red Blood Cell Count 2.67 10^6/uL (4.20-5.40); White Blood Cell Count 7.6 10^3/uL (4.8-10.8)
[2023-11-12 08:53] LABS: Blood Urea Nitrogen 14 mg/dl (7-17); Calcium 9.1 mg/dl (8.4-10.2); Carbon Dioxide 26 mmol/L (22-30); Chloride 104 mmol/L (98-107); Estimated Creatinine Clearance 94 ml/min; Glucose 146 mg/dl (70-99); Magnesium 2.2 mg/dl (1.6-2.3); Potassium 4.3 mmol/L (3.5-5.1); Sodium 138 mmol/L (135-145); eGFR > 60.00
[2023-11-12] MEDS: OCUVITE SOFTGEL 1 CAP PO ×2 (09:07→19:59)
[2023-11-12] MEDS: ALPHAGAN 0.2% EYE DROPS 1 DROP OPHTH ×2 (09:07→20:01)
[2023-11-12] MEDS: SODIUM BICARBONATE 325 MG PO ×2 (09:07→19:59)
[2023-11-12] MEDS: TYLENOL 1000 MG PO ×3 (09:08→22:14)
[2023-11-12] MEDS: KEFLEX 500 MG PO ×2 (09:08→20:02)
[2023-11-12] MEDS: DULCOLAX 5 MG PO (09:08)
[2023-11-12] MEDS: MILK OF MAGNESIA 30 ML PO (09:09)
[2023-11-12] MEDS: MIRALAX 17 GRAMS PO (09:09)
[2023-11-12] MEDS: LOVENOX 30 MG SC ×2 (09:09→20:00)
[2023-11-12] MEDS: NOVOLOG FLEXPEN-LOW RESISTANCE 1 UNITS SC ×3 (09:10→17:42)
[2023-11-12] MEDS: NOVOLOG FLEXPEN 5 UNITS SC ×2 (09:10→12:24)
[2023-11-12] MEDS: DIPROSONE CREAM 0.05% 1 APPLIC TOPICAL ×2 (09:18→20:01)
[2023-11-12 12:04] LABS: Glucose - Point of Care 193 mg/dl (70-99)
--- NOTE | 2023-11-12 14:34 | W.PN.HOSP.TC ---
Today's Communication/Plan
-
Enema for constipation, if still no bowel movement will consult GI
IV iron for anemia
Assessment / Plan
Assessment / Plan
Physical Exam
Gen-AAOx3, NAD
HEENT-NC, AT, anicteric, clear oral mm
Neck-supple
CV-reg, no M, +S1/S2
Lungs-clear B/L
Abd-soft, NT, ND
Ext-no edema
Musculoskeletal-no cyanosis, clubbing
Skin-warm and dry, widespread psoriatic lesions. LT hip surgical dressing C/D/I.
Neuro-grossly non-focal
Psych-calm, cooperative
[address] -68-year-old female here with left proximal femur fracture after a fall. OR today. Also has diffuse untreated psoriasis. DM2, hypertension, etc.
Assessment/Plan
Acute traumatic left proximal femur fracture status post left cephalomedullary nail
- due to fall
- TDWB to LLE. May be WBAT for transfers and ADLs.
- PT/OT.
--Continue Lovenox for DVT prophylaxis. (Options are ASA 325 daily and Lovenox 30mg BID subcutaneous 4 weeks for DVT ppx)
--Ancef x24 hours then 7 days PO keflex 500 mg BID (first dose was given on 11/10/23)
--Pain control per primary. Ice and elevation for pain and edema control.
--Hgb 8.6 this AM. Continue to monitor.
--Maintain surgical dressing until 2 weeks post-op (until 11/23/23)
--case management consult for dc planning.
-PT/OT
Constipation
- Still not having bowel movements
- Bowel regimen
- Suppository added and patient took milk of magnesia with no results
- Milk of Molasses enema today, 11/12/23
- If still no bowel movement, will need to consult GI
Diffuse psoriasis - not on active treatment. Can use topical steroids. Recommend outpatient follow-up with dermatology.
Hyperkalemia -5.2. ARB was discontinued. Recheck labs in the morning.
Normocytic anemia -- worsening, suspected component of iron deficiency playing a role. Continue IV Iron for 3 to 5 days (first dose was on 11/12/23)
DM2 with hyperglycemia -hemoglobin A1c 7.3%. At home she is on metformin twice daily, Tresiba scale up to 60 units at bedtime, NovoLog 5 units 3 times daily.
In the hospital she is on Lantus 20 units at bedtime, NovoLog 5 units 3 times daily (resumed on 11/11/23) and low resistance NovoLog scale. Consulted Diabetes UNIX SYSTEM ADMINISTRATOR, recommendations appreciated.
Essential hypertension -stable.
Hyperlipidemia -on Repatha subcutaneously every 2 weeks.
Hypothyroidism -continue Synthroid.
Obesity due to excess calories
Full code
PT/OT postop
Anticipated Discharge: > 48 hours
Subjective/Interval History
-
Date of Service: November 12, 2023
Patient was seen and examined. She reported that she still has not had a bowel movement.
Objective Data
-
Labs:
Laboratory Results
11/12/23
06:50
WBC 7.6
Hgb 7.4 L
Hct 23.6 L
Plt Count 232
Sodium 138
Potassium 4.3
Chloride 104
Carbon Dioxide 26
BUN 14
Creatinine 0.7
Glucose 146 H
Calcium 9.1
Vital Signs:
Vital Signs
Temp Pulse Resp BP Pulse Ox
98.8 F 85 19 152/74 98
11/12/23 07:32 11/12/23 07:32 11/12/23 07:32 11/12/23 07:32 11/12/23 07:32
I&O
11/11/23 11/12/23 11/13/23
06:59 06:59 06:59
Intake Total 2400 / 2400 4950 / 4950
Balance 2400 / 2400 4950 / 4950
--- NOTE | 2023-11-12 15:07 | PN.DE.MGMTRT ---
Insulin Management
- -
11/12/2023: Diabetes Management Consult
68 year old female admitted with left proximal femur fracture after a fall at home, now POD #2 s/p left cephalomedullary nail.
PMH: HTN, HLD, Anemia, Diffuse psoriasis, hypothyroidism, Obesity and T2DM. A1C 7.3%, Cr 0.7, eGFR >60.
Was taking Metformin 1000 mg BID, Tresiba 60-64 units @HS as needed based on her blood sugar levels and NovoLog 5 units AC.
Pt states that her PCP instructed her to hold her insulin if blood sugar is <130 abd that her blood sugars are usually well controlled.
Pt awake, alert, sitting up in chair, offers no complaints, able to discuss diabetes mgt.
Was not initially on her home regimen during surgical phase and was noted for premeal glucose >200 yesterday, AC NovoLog was restarted then.
Current diabetes regimen includes: Lantus 20 units @ HS, NovoLog 5 units AC- resumed 11/10 and low corrective.
Glucose has improved and is relatively well controlled without elevations, premeal range is 161 to 193 today, requiring 1 unit additional corrective insulin
Will resume Metformin 1000mg BID and increase AC NovoLog from 5 units to 6 units. Cont Lantus 20 units @ HS and low corrective.
Pt states she has a working meter- OneTouch at home and monitors her sugars 3 times a day.
Will follow and adjust further if necessary.
Diabetes History
- -
Type of Diabetes: 2 requiring insulin
Pre-Admission Diabetes Regimen
11/12/23
06:50
Creatinine 0.7
Lab Results
Hemoglobin A1c 7.3 % (4.0-5.6) H 11/09/23 04:41
Insulin Pump Settings
IP Diabetes Regimen
11/11/23 11/11/23 11/11/23
16:08 21:21 23:39
Glucose
POC Glucose 197 H 208 H 194 H
06/19/24 06/19/24 06/19/24
06:50 07:05 12:03
Glucose 146 H
POC Glucose 161 H 193 H
Meal type: Lunch
Meal type: Breakfast
Amount consumed: 100%
Amount consumed: 100%
Patient Education
[2023-11-12 15:15] VITALS: BP 143/71
[2023-11-12] MEDS: FERRLECIT 110 MG IV (15:21)
[2023-11-12 15:23] VITALS: BP 143/71; PULSE 100; O2SAT 98
--- NOTE | 2023-11-12 16:19 | CM ---
Spoke with patient's via phone
's SNF preferences are #[facility]; [facility]2 [facility].
Explained to that [facility] accepted referral; and that we have not heard from [facility]
CM contacted [facility] for referral status via [facility] and Phone; as of today referral has not been reviewed; CM left a voice mail with admissions to call [facility] tomorrow with referral status
Chart reviewed: discharge anticipated > 48 hours
Plan: Discharge to SNF when medically stable; facility preference is decided; and bed is available
[2023-11-12 16:47] VITALS: BP 121/67; PULSE 96; O2SAT 96
[2023-11-12] MEDS: GLUCOPHAGE 1000 MG PO (17:17)
[2023-11-12 17:41] LABS: Glucose - Point of Care 164 mg/dl (70-99)
[2023-11-12] MEDS: NOVOLOG FLEXPEN 6 UNITS SC (17:41)
[2023-11-12 22:02] LABS: Glucose - Point of Care 183 mg/dl (70-99)
[2023-11-12] MEDS: LANTUS 0.200000000000000011 UNITS SC (22:17)
[2023-11-13 00:21] VITALS: BP 136/75
[2023-11-13] MEDS: SYNTHROID 150 MCG PO (06:17)
[2023-11-13 06:27] LABS: % Basophils 0.5 % (0-2); % Eosinophils 3.8 % (0-6); % Immature Granulocytes 1.3 % (0-0.5); % Lymphocytes 23.3 % (20.5-51.1); % Neutrophils 62.1 % (42.2-75.2); Absolute Eosinophils 0.3 10^3/uL (0-0.7); Absolute Immature Granulocytes 0.1 10^3/uL (0-0.05); Absolute Lymphocytes 2.1 10^3/uL (1.2-3.4); Absolute Monocytes 0.8 10^3/uL (0.1-0.6); Absolute Neutrophils 5.5 10^3/uL (1.4-6.5); Hematocrit 22.4 % (37.0-47.0); Hemoglobin 7.4 g/dL (12.0-16.0); Mean Corpuscular Hgb 28.2 pg (27.0-31.0); Mean Corpuscular Volume 85.5 fL (81.0-99.0); Mean Platelet Volume 10.1 fL (7.4-10.4); Nucleated Red Blood Cells % 0.3 %; Platelet Count 265 10^3/uL (130-400); Red Blood Cell Count 2.62 10^6/uL (4.20-5.40); Red Cell Dist. Width 15.1 % (11.5-14.5); White Blood Cell Count 8.8 10^3/uL (4.8-10.8)
[2023-11-13 06:55] LABS: Blood Urea Nitrogen 16 mg/dl (7-17); Carbon Dioxide 28 mmol/L (22-30); Chloride 103 mmol/L (98-107); Estimated Creatinine Clearance 94 ml/min; Glucose 144 mg/dl (70-99); Magnesium 2.2 mg/dl (1.6-2.3); Potassium 4.4 mmol/L (3.5-5.1); Sodium 137 mmol/L (135-145); eGFR > 60.00
[2023-11-13 07:15] VITALS: BP 144/74
--- NOTE | 2023-11-13 07:18 | PN.DE.MGMTRT ---
Insulin Management
- -
11/13/2023: Diabetes Management Consult Follow up
Patient admitted s/p fall, missed a step at restaurant, with left proximal femur fracture. PMH: HTN, HLD, Anemia, Diffuse psoriasis, hypothyroidism, Obesity and T2DM. Prior to admission diabetes medication includes Metformin 1000 mg BID, Tresiba
60-64 units @HS and NovoLog 5 units AC. A1C 7.3%, Cr 0.7, eGFR >60.
POD #4 s/p left cephalomedullary nail.
Pt states that she sees Dr. Ralph Reyes, endocrine, for diabetes management. instructed her to hold her insulin if blood sugar is <130; states her blood sugars are usually well controlled.
Pt awake, alert, sitting up in chair, offers no complaints, able to discuss diabetes mgt.
Home regimen resumed, much lower dose of lantus, 20 units with 6 units novolog AC with corrective insulin and metformin 1000 mg BID (metformin resumed yesterday).
Glucose has improved and is relatively well controlled without elevations, premeal range is 146 to 193 11/11, requiring 1 unit additional corrective insulin. Will make no change to current regimen.
Pt states she has a working meter- OneTouch at home and monitors her sugars 3 times a day.
Will follow and adjust further if necessary.
Diabetes History
- -
Type of Diabetes: 2 requiring insulin
Pre-Admission Diabetes Regimen
11/12/23 11/13/23
06:50 04:55
Creatinine 0.7 0.7
Lab Results
Hemoglobin A1c 7.3 % (4.0-5.6) H 11/09/23 04:41
Insulin Pump Settings
IP Diabetes Regimen
11/12/23 11/12/23 11/12/23
06:50 12:03 17:40
Glucose 146 H
POC Glucose 193 H 164 H
11/12/23 11/13/23
22:00 04:55
Glucose 144 H
POC Glucose 183 H
Meal type: Breakfast
Meal type: Lunch
Amount consumed: 100%
Amount consumed: 95%
Patient Education
[2023-11-13 08:33] LABS: Glucose - Point of Care 180 mg/dl (70-99)
[2023-11-13] MEDS: MIRALAX 17 GRAMS PO (08:34)
[2023-11-13] MEDS: GLUCOPHAGE 1000 MG PO (08:34)
[2023-11-13] MEDS: OCUVITE SOFTGEL 1 CAP PO (08:34)
[2023-11-13] MEDS: LOVENOX 30 MG SC (08:34)
[2023-11-13] MEDS: KEFLEX 500 MG PO (08:34)
[2023-11-13] MEDS: TYLENOL 1000 MG PO ×2 (08:34→16:00)
[2023-11-13] MEDS: ALPHAGAN 0.2% EYE DROPS 1 DROP OPHTH (08:34)
[2023-11-13] MEDS: DULCOLAX 5 MG PO (08:34)
[2023-11-13] MEDS: SODIUM BICARBONATE 325 MG PO (08:35)
[2023-11-13] MEDS: DIPROSONE CREAM 0.05% 1 APPLIC TOPICAL (08:35)
[2023-11-13] MEDS: NOVOLOG FLEXPEN-LOW RESISTANCE 1 UNITS SC (08:36)
[2023-11-13] MEDS: NOVOLOG FLEXPEN 6 UNITS SC ×2 (08:36→12:33)
[2023-11-13] MEDS: DRISDOL (VITAMIN D2) 50000 UNITS PO (09:56)
--- NOTE | 2023-11-13 10:00 | CM ---
Addendum entered by Edith Gonsales 11/13/23 12:17:
[facility] notified & acknowledged ambulance picking tech time
Addendum entered by Edith Gonsales 11/13/23 12:15:
Ambulance picking tech scheduled w/ Acute Care for 5 PM today
Addendum entered by Edith Gonsales 11/13/23 12:03:
Requested Ambulance picking tech for 5:00 PM w/ Acute Care
If [facility] Ambulance unable to picking tech @ 5 PM, arrange picking tech with another company
Addendum entered by Edith Gonsales 11/13/23 11:25:
IMM benefit explained; form signed @ [phone]
[facility] has a bed available for patient today; patient will be admitted to Transitional Care Unit and receive subacute therapy there
TCU is in the [facility] building; but is considered part of the hospital
Ambulance Transport will be coordinated by patient's : Ambulance should go to [facility] Entrance and go to [facility]
Report # [phone]

Addendum entered by Edith Gonsales 11/13/23 11:03:
Met with patient at bedside and provided SNF referral update
Original Note:
Contacted [facility] via phone # [phone] and spoke w/ Carolyn in Admissions. Informed that facility does not utilized [facility] for [facility] Referrals.
Instructed to Fax demographic and clinical information to #[phone]
--- NOTE | 2023-11-13 11:34 | CON.ONC ---
Impression
Impression
Status post ORIF left hip
Protracted anemia
Iron deficiency
Significant trauma likely causing local blood loss
Diabetes mellitus
Plan
Plan
Patient with profound iron deficiency by virtue of serum iron saturation
Parenteral iron resuscitation with ferric gluconate
Blood loss related to trauma stable at 7.4 g/dL
Evaluate additional substrates B12 folic acid monitor reticulocyte count
Recommend outpatient GI evaluation
Patient asymptomatic and stable likely to recover without transfusion
Monitor CBC
Patient History
History of Present Illness
Patient is a 68y F with PMH significant for hypertension, DM-II and obesity who presents to ED complaining of left hip pain after a [id number] this evening. Patient missed a step when exiting a restaurant after making reservations and fell
onto her left hip. She denies striking her head or any LOC. She denies any prodrome of dizziness, lightheadedness, chest pain or dyspnea. Patient noted immediate pain upon attempting to bear weight. Patient was brought to ED via EMS and
x-rays here confirm L femur fracture.
Past-Medical/Surgical History
MH/PSH: DM-II, HTN, Obesity, Hypothyroidism, Osteoarthritis. Thyroidectomy, T&A.
Family History: Family history was reviewed. Noncontributory
Social history: Former smoker (quit smoking 40 years ago. Approximate 20 pack years total use). Reports occasional alcohol use. Denies any illicit drug use. Patient is and lives with her family. Patient is fully ambulatory at baseline
without assistance.
Patient Medication
�Medication �Instructions �Recorded �Confirmed �Last Taken �Type
brimonidine 0.2 % eye drops 1 drp ophthalmic (eye) BID Eye 11/08/23 11/08/23 Unknown History
Condition
ergocalciferol (vitamin D2) 1,250 1,250 mcg PO QWEEK Supplement 11/08/23 11/08/23 Unknown History
mcg (50,000 unit) capsule
evolocumab 140 mg/mL subcutaneous 140 mg SC Q2W High Cholesterol 11/08/23 11/08/23 Unknown History
syringe (Repatha Syringe)
insulin aspart U-100 100 unit/mL 5 unit SC TID Diabetes 11/08/23 11/08/23 Unknown History
(3 mL) subcutaneous pen (Novolog
FlexPen U-100 Insulin aspart)
insulin degludec 100 unit/mL (3 60 unit SC HS Diabetes 11/08/23 11/08/23 Unknown History
mL) subcutaneous pen (Tresiba
FlexTouch U-100 insulin)
levothyroxine 150 mcg tablet 150 mcg PO DAILY Thyroid 11/08/23 11/08/23 Unknown History
meloxicam 15 mg tablet 15 mg PO DAILY Pain 11/08/23 11/08/23 Unknown History
metformin 1,000 mg tablet 1,000 mg PO BID Diabetes 11/08/23 11/08/23 Unknown History
olmesartan 40 mg tablet 40 mg PO DAILY Blood Pressure 11/08/23 11/08/23 Unknown History
sodium bicarbonate 325 mg tablet 325 mg PO BID Electrolyte Repletion 11/08/23 11/08/23 Unknown History
vit C 250 mg-vit E 90 mg-zinc 40 1 tab PO BID Supplement 11/08/23 11/08/23 Unknown History
mg-copper 1 [id number]
capsule (PreserVision AREDS-2)
Active Medications
Generic Name Dose Route Start Last Admin
Trade Name Freq PRN Reason Stop Dose Admin
Acetaminophen 1,000 mg 11/09/23 08:00 11/13/23 08:34
Acetaminophen 500 Mg Tablet PO 12/07/23 07:59 1,000 mg
TID SHWETHA Administration
Acetaminophen 650 mg 11/09/23 17:21
Acetaminophen 325 Mg Tablet PO 12/07/23 17:20
Q4HPRN PRN
headache, temp >101F
Al Hydrox/Mg Hydrox/Simethicone 30 ml 11/09/23 17:21
Mag/Al/Simethicone Suspension 30 Ml Cup PO 12/07/23 17:20
Q4HPRN PRN
indigestion
Betamethasone Dipropionate 0 applic 11/09/23 11:00 11/13/23 08:35
Betamethasone Dipropionate 0.05% (Cream) 15 Gram Tube TOPICAL 12/07/23 10:59 1 applic
BID SHWETHA Administration
Bisacodyl 5 mg 11/11/23 08:00 11/13/23 08:34
Bisacodyl 5 Mg Enteric Coated Tablet PO 12/09/23 07:59 5 mg
DAILY SHWETHA Administration
Brimonidine Tartrate 1 drop 11/09/23 08:00 11/13/23 08:34
Brimonidine 0.2% (Ophthalmic Solution) Bottle OPHTH 12/07/23 07:59 1 drop
BID SHWETHA Administration
Cephalexin HCl 500 mg 11/10/23 12:00 11/13/23 08:34
Cephalexin 500 Mg Capsule PO 11/16/23 20:01 500 mg
BID HSWETHA Administration
Dextrose 12.5 grams 11/09/23 01:44
Dextrose 50% (0.5 Grams/Ml) 50 Ml Syringe IV 12/07/23 01:43
[id number] PRN
hypoglycemia
Protocol
Enoxaparin Sodium 30 mg 11/10/23 08:00 11/13/23 08:34
Enoxaparin Sodium 30 Mg/0.3 Ml Syringe SC 12/08/23 07:59 30 mg
Q12H SHWETHA Administration
Ergocalciferol 50,000 units 11/11/23 08:00 11/13/23 09:56
Ergocalciferol (Vitamin D-2) 75201 Units Capsule PO 12/09/23 07:59 50,000 units
TH SHWETHA Administration
Glucagon 1 mg 11/09/23 01:44
Glucagon 1 Mg Vial IM 12/07/23 01:43
PRN PRN
hypoglycemia
Protocol
Hydromorphone HCl 0.5 mg 11/10/23 08:41
Hydromorphone 0.5 Mg/0.5 Ml Syringe IV 11/23/23 00:07
Q4HPRN PRN
Severe Pain
Insulin Glargine 20 units/ 0.2 mls @ 0 mls/hr 11/09/23 22:00 11/12/23 22:17
Device SC 12/07/23 21:59 0.2 mls
HS SHWETHA Administration
As Directed
Ferric Sodium Gluconate 110 mls @ 110 mls/hr 11/11/23 14:00 11/12/23 15:21
Complex 125 mg/ Sodium IV 11/15/23 14:59 110 mls
Chloride DAILY@1400 SHWETHA Administration
Insulin Aspart 0 units 11/10/23 07:30 11/13/23 08:36
Insulin Aspart Low Resistance 300 Units/3 Ml Pen.Injctr SC 12/08/23 07:29 1 units
AC SHWETHA Administration
Protocol
Insulin Aspart 6 units 11/12/23 16:30 11/13/23 08:36
Insulin Aspart (100 Units/Ml) 3 Ml Flexpen SC 12/10/23 16:29 6 units
AC SHWETHA Administration
Levothyroxine Sodium 150 mcg 11/09/23 06:00 11/13/23 06:17
Levothyroxine 150 Mcg Tablet PO 12/07/23 05:59 150 mcg
DAILY@0600 SHWETHA Administration
Magnesium Hydroxide 30 ml 11/09/23 17:21 11/12/23 09:09
Milk Of Magnesia 30 Ml Cup PO 12/07/23 17:20 30 ml
[id number] PRN Administration
constipation
Metformin HCl 1,000 mg 11/12/23 17:00 11/13/23 08:34
Metformin 1000 Mg Regular Release Tablet PO 12/10/23 16:59 1,000 mg
BID AT 0800,1700 SHWETHA Administration
Ondansetron HCl 4 mg 11/10/23 08:43
Ondansetron 4 Mg/2 Ml Vial IV 12/07/23 00:07
Q6HPRN PRN
nausea and vomiting
Oxycodone HCl 5 mg 11/09/23 17:21 11/12/23 01:30
Oxycodone 5 Mg Regular Release Tablet PO 11/23/23 17:20 5 mg
Q4HPRN PRN Administration
mild pain
Oxycodone HCl 10 mg 11/09/23 17:21 11/11/23 09:11
Oxycodone 10 Mg Regular Release Tablet PO 11/23/23 17:20 10 mg
Q4HPRN PRN Administration
moderate pain
Polyethylene Glycol 17 grams 11/10/23 15:00 11/13/23 08:34
Polyethylene Glycol Powder 17 Grams Packet PO 12/08/23 14:59 17 grams
DAILY SHWETHA Administration
Sodium Bicarbonate 325 mg 11/09/23 08:00 11/13/23 08:35
Sodium Bicarbonate 650 Mg Tablet PO 12/07/23 07:59 325 mg
BID SHWETHA Administration
Sodium Chloride 0 flush 11/09/23 02:00
Sodium Chloride 0.9% (Flush) Syringe IV 12/07/23 01:59
PER PROTOCOL SHWETHA
Vitamin C/Vitamin E 1 cap 11/10/23 20:00 11/13/23 08:34
Vit C/Vit E/Lutein/Min/[place]awk-3 (Ocuvite) Capsule PO 12/08/23 19:59 1 cap
BID SHWETHA Administration
Review of Systems
-
Patient denies symptoms would be indicative of symptomatic anemia. She has had no shortness of breath or palpitations. She denies chest pain. She is resting comfortably sitting in a chair. She continues to have discomfort upon attempting
movement of her hip.
Physical Exam
-
General: Well Developed and Well Nourished
HEENT: Negative Jaundice
Cardiology: Normal Sinus Rhythm
Pulmonary: Clear
Musculoskeletal: No Clubbing and Edema. Left Upper Extrem (No palpable cords or Tank's)
Extremities: Pulses Present
Skin: Warm and Dry
Hematologic / Lymphatic: No Lymphadenopathy
Psych: Calm
Labs
Lab Results
WBC 8.8 10^3/uL (4.8-10.8) 11/13/23 04:55
RBC 2.62 10^6/uL (4.20-5.40) L 11/13/23 04:55
Hgb 7.4 g/dL (12.0-16.0) L 11/13/23 04:55
Hct 22.4 % (37.0-47.0) L 11/13/23 04:55
MCV 85.5 fL (81.0-99.0) 11/13/23 04:55
MCH 28.2 pg (27.0-31.0) 11/13/23 04:55
MCHC 33.0 g/dL (33.0-37.0) 11/13/23 04:55
RDW 15.1 % (11.5-14.5) H 11/13/23 04:55
Plt Count 265 10^3/uL (130-400) 11/13/23 04:55
MPV 10.1 fL (7.4-10.4) 11/13/23 04:55
Abs Immat Gran (auto) 0.1 10^3/uL (0-0.05) H 11/13/23 04:55
Absolute Neuts (auto) 5.5 10^3/uL (1.4-6.5) 11/13/23 04:55
Absolute Lymphs (auto) 2.1 10^3/uL (1.2-3.4) 11/13/23 04:55
Absolute Monos (auto) 0.8 10^3/uL (0.1-0.6) H 11/13/23 04:55
Absolute Eos (auto) 0.3 10^3/uL (0-0.7) 11/13/23 04:55
Absolute Basos (auto) 0.0 10^3/uL (0-0.2) 11/13/23 04:55
Immature Gran % 1.3 % (0-0.5) H 11/13/23 04:55
Neutrophils % 62.1 % (42.2-75.2) 11/13/23 04:55
Lymphocytes % 23.3 % (20.5-51.1) 11/13/23 04:55
Monocytes % 9.0 % (1.7-9.3) 11/13/23 04:55
Eosinophils % 3.8 % (0-6) 11/13/23 04:55
Basophils % 0.5 % (0-2) 11/13/23 04:55
Creatinine 0.7 mg/dL (0.6-1.0) 11/13/23 04:55
Vital Signs
Vital Signs
Temp Pulse Resp BP Pulse Ox
99.1 F 84 18 144/74 97
11/13/23 07:15 11/13/23 07:15 11/13/23 07:15 11/13/23 07:15 11/13/23 07:15
--- NOTE | 2023-11-13 11:50 | W.PN.HOSP.TC ---
Addendum entered and electronically signed by Torsten Durham MD 11/23/23 14:20:
Acute blood loss anemia with iron deficiency anemia
Original Note:
Today's Communication/Plan
-
Discharge today after receiving today's intravenous iron dose
Assessment / Plan
Assessment / Plan
Physical Exam
Gen-AAOx3, NAD
HEENT-NC, AT, anicteric, clear oral mm
Neck-supple
CV-reg, no M, +S1/S2
Lungs-clear B/L
Abd-soft, NT, ND
Ext-no edema
Musculoskeletal-no cyanosis, clubbing
Skin-warm and dry, widespread psoriatic lesions. LT hip surgical dressing C/D/I.
Neuro-grossly non-focal
Psych-calm, cooperative
[address] -68-year-old female here with left proximal femur fracture after a fall. OR today. Also has diffuse untreated psoriasis. DM2, hypertension, etc.
Assessment/Plan
Acute traumatic left proximal femur fracture status post left cephalomedullary nail
- due to fall
- TDWB to LLE. May be WBAT for transfers and ADLs.
- PT/OT.
--Continue Lovenox for DVT prophylaxis. (Options are ASA 325 daily and Lovenox 30mg BID subcutaneous 4 weeks for DVT ppx)
--Ancef x24 hours then 7 days PO keflex 500 mg BID (first dose was given on 11/10/23 -- 7 more doses left)
--Pain control per primary. Ice and elevation for pain and edema control.
--Hgb 8.6 this AM. Continue to monitor.
--Maintain surgical dressing until 2 weeks post-op (until 11/23/23)
--case management consult for dc planning.
--PT/OT
Constipation
- Still not having bowel movements
- Bowel regimen
- Patient had significant bowel movement on 11/13/23
Diffuse psoriasis - not on active treatment. Can use topical steroids. Recommend outpatient follow-up with dermatology.
Hyperkalemia - 5.2. ARB was discontinued. Recheck labs in the morning.
Normocytic anemia -- worsening, suspected component of iron deficiency playing a role. Hematology recommendations appreciated. Continue IV Iron. PO Iron on discharge. Follow-up B12, folic acid, monitor reticulocyte count. Outpatient GI evaluation.
DM2 with hyperglycemia -hemoglobin A1c 7.3%. At home she is on metformin twice daily, Tresiba scale up to 60 units at bedtime, NovoLog 5 units 3 times daily.
In the hospital she is on Lantus 20 units at bedtime, NovoLog 6 units 3 times daily (resumed on 11/11/23) and low resistance NovoLog scale. Consulted Diabetes MANAGER AGENCY, recommendations appreciated.
Essential hypertension -stable.
Hyperlipidemia -on Repatha subcutaneously every 2 weeks.
Hypothyroidism -continue Synthroid.
Obesity due to excess calories
Full code
PT/OT postop
More than 30 minutes spent in discharge including
Final examination of the patient
Summarizing hospital stay
Instructions for continuing care to all relevant caregivers
Preparation of discharge records, prescriptions, and referral forms
Total time spent (in minutes): 45
Anticipated Discharge: Today
Subjective/Interval History
-
Date of Service: November 13, 2023
Patient was seen and examined. She had a large bowel movement yesterday, she denied any dizziness or any other new, significant complaints.
Objective Data
-
Labs:
Laboratory Results
11/13/23
04:55
WBC 8.8
Hgb 7.4 L
Hct 22.4 L
Plt Count 265
Sodium 137
Potassium 4.4
Chloride 103
Carbon Dioxide 28
BUN 16
Creatinine 0.7
Glucose 144 H
Calcium 9.0
Vital Signs:
Vital Signs
Temp Pulse Resp BP Pulse Ox
99.1 F 84 18 144/74 97
11/13/23 07:15 11/13/23 07:15 11/13/23 07:15 11/13/23 07:15 11/13/23 07:15
I&O
11/12/23 11/13/23 11/14/23
06:59 06:59 06:59
Intake Total 4950 / 4950 2029
Balance 4950 / 4950 2029
[2023-11-13 12:31] LABS: Glucose - Point of Care 145 mg/dl (70-99)
[2023-11-13] MEDS: NOVOLOG FLEXPEN-LOW RESISTANCE SC ×2 (12:32→17:32)
[2023-11-13 12:51] LABS: Reticulocyte Count 3.1 % (0.4-2.8)
--- NOTE | 2023-11-13 13:47 | W.DS.TRANS ---
DC Summary - Engineering Analyst
-
Discharge Instructions:
Discharge Diagnosis/Procedures Acute traumatic left proximal femur fracture
status post left cephalo-medullary nail
Constipation
Diffuse psoriasis
Hyperkalemia
Iron Deficiency Anemia
Normocytic anemia
Type 2 Diabetes Mellitus
Essential hypertension
Hyperlipidemia
Hypothyroidism
Obesity due to excess calories
Diet Diabetic, Carb Controlled,Low Cholesterol,Low
Fat
Activity Other activity
Additional Activity TDWB (Touch-Down Weight-Bearing) to LLE. May be
WBAT for transfers and ADLs.
Blood Work Recheck CBC, BMP and Magnesium in 2 to 3 days
Other Services PT,OT
Instructions:
Stand-Alone Forms:
Changes to Home Medications: Yes
Discharge Medications:
DC Medications w/original date entered in [employer]
brimonidine 0.2 % eye drops 1 drp ophthalmic (eye) BID Eye Condition 11/08/23
ergocalciferol (vitamin D2) 1,250 mcg (50,000 unit) capsule 1,250 mcg PO QWEEK Supplement 11/08/23
evolocumab 140 mg/mL subcutaneous syringe (Repatha Syringe) 140 mg SC Q2W High Cholesterol 11/08/23
levothyroxine 150 mcg tablet 150 mcg PO DAILY Thyroid 11/08/23
meloxicam 15 mg tablet 15 mg PO DAILY Pain 11/08/23
metformin 1,000 mg tablet 1,000 mg PO BID Diabetes 11/08/23
olmesartan 40 mg tablet 40 mg PO DAILY Blood Pressure 11/08/23
sodium bicarbonate 325 mg tablet 325 mg PO BID Electrolyte Repletion 11/08/23
vit C 250 mg-vit E 90 mg-zinc 40 mg-copper 1 [id number]-[id number] capsule (PreserVision AREDS-2) 1 tab PO BID Supplement 11/08/23
acetaminophen 500 mg tablet (Tylenol Extra Strength) 1,000 mg (2 x 500 mg) PO TID 1 week #42 tabs 11/13/23
betamethasone dipropionate 0.05 % topical cream 1 applic topical BID #15 grams 11/13/23
bisacodyl 5 mg tablet,delayed release 5 mg PO DAILY #30 tabs 11/13/23
cephalexin 500 mg capsule 500 mg PO BID #7 caps 11/13/23
enoxaparin 30 mg/0.3 mL subcutaneous syringe 30 mg (0.3 mL) SC Q12H 4 weeks #16.8 mL 11/13/23
ferrous sulfate 325 mg (65 mg iron) tablet 325 mg PO Q48H #14 tabs 11/13/23
insulin aspart U-100 100 unit/mL (3 mL) subcutaneous pen (Novolog FlexPen U-100 Insulin aspart) 6 unit (0.06 mL) SC AC Diabetes #0 mL 11/13/23
insulin degludec 100 unit/mL (3 mL) subcutaneous pen (Tresiba FlexTouch U-100 insulin) 20 unit (0.2 mL) SC HS Diabetes #0 mL 11/13/23
magnesium hydroxide 400 mg/5 mL oral suspension 30 ml PO [id number] PRN constipation #3,000 mL 11/13/23
polyethylene glycol 3350 17 gram oral powder packet (HealthyLax) 17 g PO DAILY #30 ea 11/13/23
Home Medication Changes
Acetaminophen, Topical Betamethasone, Bisacodyl, Cephalexin, Enoxaparin, Ferrous Sulfate, Magnesium Hydroxide and HealthyLax are new medications
Pending Results: No
Total time spent discharging patient (in min): 45
[2023-11-13] MEDS: FERRLECIT 110 MG IV (13:58)
[2023-11-13 14:15] LABS: Folate 11.5 ng/ml (2.76-20); Vitamin B12 < 159 pg/ml (239-931)
[2023-11-13 15:05] VITALS: BP 151/70
[2023-11-13] MEDS: GLUCOPHAGE PO (16:02)
[2023-11-13 17:25] LABS: Glucose - Point of Care 161 mg/dl (70-99)
--- NOTE | 2023-11-13 17:30 | PTCARENOTE ---
Patients blood sugar is 161. Patient refused the 6 units of insulin and the sliding scale due to patient not wanting to eat dinner prior to discharge.
[2023-11-13] MEDS: NOVOLOG FLEXPEN SC (17:31)
--- NOTE | 2023-11-16 11:41 | W.DCSUMMARY ---
Discharge Summary
Discharge Data
Date of Admission: 11/08/23
Date of Discharge: 11/13/23
Total time spent discharging patient (in min): 45
-
Pending Results: No
Hospital Course
68 y/o female with past medical history significant for hypertension, DM-II and obesity who presented complaining of left hip pain after a [id number]. Patient was found to have a left hip fracture. Patient was also noted to have psoriatic plaques
throughout the anterior lateral thigh without signs of infection. On November 09, 2023, patient had a left subtrochanteric hip fracture open reduction and internal fixation with cephalomedullary nail for her left subtrochanteric hip fracture. Patient
was started on Lovenox for DVT prophylaxis. Patient was given Ancef and Keflex antibiotics for prophylaxis given her skin changes. Patient was placed on a bowel regimen and eventually had a bowel movement. Patient was found to have profound iron
deficiency anemia and was given intravenous iron. Hematology was consulted and recommended follow-up on vitamin B12, folic acid and reticulocyte count which were ordered on the day of discharge. Diabetes Nurse practitioner was consulted for optimal
regimen for her diabetes. She was stable for discharge to a halfway facility.
Discharge Plan
-
Patient Disposition: Mcfp/SNF
Discharge Diagnosis/Procedures: Acute traumatic left proximal femur fracture status post left cephalo-medullary nail
Constipation
Diffuse psoriasis
Hyperkalemia
Iron Deficiency Anemia
Normocytic anemia
Type 2 Diabetes Mellitus
Essential hypertension
Hyperlipidemia
Hypothyroidism
Obesity due to excess calories
Condition: Good
Diet: Low Fat, Low Cholesterol and Diabetic, Carb Controlled
Activity: Other activity
Additional Activity: TDWB (Touch-Down Weight-Bearing) to LLE. May be WBAT for transfers and ADLs.
Blood Work: Recheck CBC, BMP and Magnesium in 2 to 3 days
Other Services: PT and OT
Activity Restrictions/Additional Instructions:
TDWB (Touch-Down Weight-Bearing) to LLE. May be WBAT for transfers and ADLs.
FOLLOW-UP RESULTS OF VITAMIN B12, FOLIC ACID AND RETICULOCYTES ORDERED DURING PATIENT'S HOSPITALIZATION
Recheck CBC, BMP and Magnesium in 2 to 3 days
Referrals:
Redd Henderson DO [Active] - in one to two weeks (Hospital follow-up of profound iron deficiency anemia)
Makenzie Sheppard MD [Family Provider] - in less than 1 week
Zane Pennington MD [Active] - in one to two weeks (Iron Deficiency Anemia, request GI evaluation of anemia)
Marquis Trujillo MD [Active] - in one to two weeks (Hospital hip surgery follow-up for wound check)
Additional Discharge Medication Instructions: Acetaminophen, Topical Betamethasone, Bisacodyl, Cephalexin, Enoxaparin, Ferrous Sulfate, Magnesium Hydroxide and HealthyLax are new medications
Prescriptions:
New
betamethasone dipropionate 0.05 % Cream
1 applic topical BID Qty: 15 0RF
Rx Instructions:
1 APPLICATION TO psoriatic lesions
bisacodyl 5 mg Tablet,Delayed Release (Dr/Ec)
5 mg PO DAILY Qty: 30 0RF
ferrous sulfate 325 mg (65 mg iron) tablet
325 mg PO Q48H Qty: 14 1RF
cephalexin 500 mg Capsule
500 mg PO BID Qty: 7 0RF
enoxaparin 30 mg/0.3 mL Syringe
30 mg SC Q12H 28 Days Qty: 16.8 0RF
magnesium hydroxide 400 mg/5 mL Suspension
30 ml PO [id number] PRN (Reason: constipation) Qty: 3000 0RF
polyethylene glycol 3350 [HealthyLax] 17 gram Powder In Packet
17 g PO DAILY Qty: 30 0RF
acetaminophen [Tylenol Extra Strength] 500 mg Tablet
1,000 mg PO TID 7 Days Qty: 42 0RF
Continued
sodium bicarbonate 325 mg Tablet
325 mg PO BID
metformin 1,000 mg Tablet
1,000 mg PO BID
levothyroxine 150 mcg Tablet
150 mcg PO DAILY
brimonidine 0.2 % Drops
1 drp OPHTHALMIC (EYE) BID
Rx Instructions:
R eye BID
ergocalciferol (vitamin D2) 1,250 mcg (50,000 unit) Capsule
1,250 mcg PO QWEEK
PreserVision AREDS-2 250-90-40-1 mg Capsule
1 tab PO BID
Repatha Syringe 140 mg/mL Syringe
140 mg SC Q2W
Changed
insulin aspart U-100 [Novolog FlexPen U-100 Insulin] 100 unit/mL (3 mL) Insulin Pen
6 unit SC AC Qty: 0 0RF
Rx Instructions:
5 units +/- SSI
insulin degludec [Tresiba FlexTouch U-100] 100 unit/mL (3 mL) Insulin Pen
20 unit SC HS Qty: 0 0RF
Rx Instructions:
Patient states she takes between 0 and 60 units depending on her glucose (?)
Held
meloxicam 15 mg Tablet
15 mg PO DAILY
Hold Instructions: Resume on 12/11/23. Resume this medication if and only if your outpatient physicians say it is okay to resume this medication.
olmesartan 40 mg Tablet
40 mg PO DAILY
Hold Instructions: Resume on 01/01/24. Held due to hyperkalemia. Resume this medication if and only if cleared to do so by your outpatient physician.
Discharge Orders:
Discharge Patient (As Directed); Ordered 11/13/23
Ordered By: Torsten Durham
Discharge Date and Time
Discharge Date/Time: 11/13/23 17:42
Print Language: BRUNEIAN
--- NOTE | 2023-11-18 17:43 | PN.CDI ---
CDI
- -
CDI:
Physician Documentation Request
Admit Date: 11/08/23 23:59
Dear Doctor Marva,
Please review the following and provide your response in the progress notes.
Clinical Indicators: Oncology consult:
Protracted anemia
Iron deficiency
Significant trauma likely causing local blood loss
Blood loss related to trauma stable at 7.4 g/dL
The patient is treated with IV iron and labs are followed.
The DS only specify iron deficiency anemia
Based on the above, could you clarify, in your progress note, which of the following is the most likely type of anemia you are evaluating, monitoring and/or treating?
Acute blood loss anemia
Acute blood loss anemia with baseline chronic anemia (Specify type)
Iron deficiency anemia
Other
Use of terms such as suspected, likely, concern for, or probable (associated with a specific diagnosis that is being evaluated, monitored, or treated as if it exists) are acceptable and can be coded in the inpatient setting, when documented at the
time of discharge.
Thank you,
Gloria Dawkins
Lawn Technician Inpatient
Please use your independent medical judgment in providing your response.
== END 2023-11-13 17:42 | DRG 481 ==
LOC: 2 SOUTH 23:59
PROVIDERS: Emergency Medicine; Hospitalist; ADMITTING PHYSICIAN Hospitalist; ATTENDING PHYSICIAN Hospitalist; CONSULT PHYSICIAN Internal Medicine Hematology & Oncology; CONSULT PHYSICIAN Orthopaedic Surgery; EMERGENCY PHYSICIAN Emergency Medicine; FAMILY PHYSICIAN Internal Medicine
PROC: 0QS706Z Reposition Left Upper Femur with Intramedullary Internal Fixation Device, Open Approach (ICD-10-PCS; 2023-11-09)
DX: S72.22XA Displaced subtrochanteric fracture of left femur, initial encounter for closed fracture (principal); D62 Acute posthemorrhagic anemia; I10 Essential (primary) hypertension; E11.65 Type 2 diabetes mellitus with hyperglycemia; E89.0 Postprocedural hypothyroidism; E78.5 Hyperlipidemia, unspecified; L40.8 Other psoriasis; D50.9 Iron deficiency anemia, unspecified; E87.5 Hyperkalemia; K59.00 Constipation, unspecified; E66.09 Other obesity due to excess calories; M19.90 Unspecified osteoarthritis, unspecified site; E88.819 Insulin resistance, unspecified; Z87.891 Personal history of nicotine dependence; Z79.84 Long term (current) use of oral hypoglycemic drugs; Z79.4 Long term (current) use of insulin; Z79.890 Hormone replacement therapy; Z68.33 Body mass index [BMI] 33.0-33.9, adult; W10.8XXA Fall (on) (from) other stairs and steps, initial encounter; Y92.511 Restaurant or cafe as the place of occurrence of the external cause
CPT/HCPCS: 73502; 73552; 73700; 74018; 76000; 80048; 80053; 82607; 82728; 82746; 82962; 83036; 83540; 83550; 83735; 85025; 85027; 85045; 86850; 86900; 86901; 93005; 96374; 96375; 97110; 97116; 97162; 97166; 97530; 97535; 99285; C1713; C1769; J2916